=== PATIENT | female | born 1955 | race Caucasian/White ===

== ENCOUNTER 2019-09-10 14:49 | Emergency (ER) | payer MEDICARE ==
--- NOTE | 2019-09-10 15:11 | Emergency Department Record ---
History of Present Illness - General Chief Complaint: Laceration(s) Stated Complaint: LT HAND LAC Time Seen by Provider: 09/10/19 15:09 Source: Patient Mode of Arrival: Ambulatory Limitations: No limitations - History of Present Illness Initial Commments: 64 yo male presents with an injury to his left hand that occurred at 1pm. He fell onto his toolbox causing a laceration from a sharp edge. He was seen at an Urgent Care in [place] and was sent to the ED in [place]. Tetanus was updated. The wound was cleaned prior to arrive. No contamination was noted by the patient. Onset/Timin -: Minutes(s) Place: Home Context: Accidental Associated Symptoms: None - Guille Coma Scale Eye Response: (4) Open spontaneously Motor Response: (6) Obeys commands Verbal Response: (5) Oriented Guille Total: 15 - Related Data Hx Tetanus Toxoid Vaccination: Yes Year of Tetanus Vaccination: t Patient Tetanus UTD (within 5 yrs): Yes Home Medications Medication Instructions Recorded Confirmed Last Taken Gemfibrozil [Lopid] 600 mg PO DAILY 09/10/19 09/10/19 1 Day Ago ~09/09/19 Lisinopril 20 mg PO DAILY 09/10/19 09/10/19 1 Day Ago ~09/09/19 Allergies Allergy/AdvReac Type Severity Reaction Status Date / Time clindamycin AdvReac DIARRHEA Verified 09/10/19 15:08 Travel Screening - Travel/Exposure Within Last 30 Days Have you traveled within the last 30 days?: No - Travel/Exposure Within Last Year Have you traveled outside the [place] in the last year?: No - Additonal Travel Details Have you been exposed to anyone with a communicable illness?: No - Travel Symptoms Symptom Screening: None Review of Systems Constitutional: Denies: Chills, Fever, Weakness Eyes: Denies: Eye discharge ENT: Denies: Congestion, Throat pain Respiratory: Denies: Cough Cardiovascular: Denies: Chest pain, Syncope Endocrine: Denies: Fatigue Gastrointestinal: Denies: Abdominal pain, Diarrhea, Nausea, Vomiting Genitourinary: Denies: Dysuria Musculoskeletal: Denies: Arthralgia, Back pain, Myalgia Neurological: Denies: Headache Psychiatric: Denies: Anxiety Hematological/Lymphatic: Denies: Easy bleeding, Easy bruising Past Medical History - SOCIAL HISTORY Smoking Status: Former smoker Alcohol Use: Occasional Drug Use: Rare, Occasional Drug Use Detail:: Marijuana - RESPIRATORY Hx Respiratory Disorders: No - CARDIOVASCULAR Hx Cardio Disorders: Yes Hx Hypertension: Yes Comment:: hypercholestrol - NEURO Hx Neuro Disorders: No - GI Hx GI Disorders: No - Hx Genitourinary Disorders: No - ENDOCRINE Hx Endocrine Disorders: No Hx Diabetes: No Hx Thyroid Disease: No - MUSCULOSKELETAL Hx Musculoskeletal Disorders: Yes Hx Arthritis: Yes - PSYCH Hx Psych Problems: Yes Hx Depression: Yes - HEMATOLOGY/ONCOLOGY Hx Hematology/Oncology Disorders: No Family Medical History Any Significant Family History?: Yes Physical Exam - General General Appearance: Alert, Oriented x3, Cooperative, No acute distress Limitations: No limitations - Head Head exam: Atraumatic, Normocephalic, Normal inspection - Eye Eye exam: Normal appearance - ENT ENT exam: Normal exam Ear exam: Normal external inspection Nasal Exam: Normal inspection Mouth exam: Normal external inspection - Neck Neck exam: Normal inspection - Respiratory Respiratory exam: negative: Respiratory distress - Cardiovascular Cardiovascular Exam: Regular rate, Normal rhythm, Normal heart sounds Peripheral Pulses: 2+: Radial (L) - Rectal Rectal exam: Deferred - exam: Deferred - Extremities Extremities exam: Full ROM, Normal capillary refill, Tenderness, Other (Laceration). negative: Pedal edema Image of Hand: 1 - tear drop shaped flap like laceration of the palmar surface, no FB, clean, full thumb ROM, no signs of deeper injury or tendon injury, opposes thumb to other fingers without limitation - Neurological Neurological exam: Alert, Oriented X3 - Psychiatric Psychiatric exam: Normal affect, Normal mood - Skin Skin exam: Dry, Normal color, Warm. negative: Intact Type of lesion: Laceration Course Vital Signs 09/10/19 14:51 Temperature 97.8 F Pulse Rate 105 H Respiratory 18 Rate Blood Pressure 157/88 Pulse Ox 99 - Reevaluation(s) Reevaluation #1: 09/10/19 16:23 The XR of the hand was negative I had a very long discussion about the the potential risks and difficulties of healing with this wound given it is a superficial flap like laceration. I explained the flap of tissue has a high chance of not healing requiring potential grafting or healing by secondary intention. I offered referral to hand surgery. The patient understands this risk but requests closure at this time with the knowledge that healing may not be complete or could be complicated. He requests to approach it with a watch and see how it heals. He does agree to the referral and will call hand surgery for follow up but requests the closure. Procedure: 6 cm laceration of the palm of the hand Wound was cleaned and prepped in sterile fashion, no residual FB identified on examination. The wound was copiously irrigated with NS Wound was anesthetized with 4 mL of Bupivicaine The laceration was repaired with Prolene 5-0 sutures in interrupted fashion. 16 sutures placed. Patient tolerated the procedure well without complications. We discussed home care, reasons for immediate return if any concerns, and suture removal in 14 days The patient will either call for a follow up wit hand surgery or return for a wound check in 2-3 days We discussed home care for the wound and reasons to return sooner 09/11/19 07:44 Disposition Disposition: Discharge Clinical Impression: Hand laceration Qualifiers: Encounter type: initial encounter Foreign body presence: without foreign body Laterality: left Qualified Code(s): S61.412A - Laceration without foreign body of left hand, initial encounter Disposition: Home, Self-Care Condition: (1) Good Instructions: Laceration (ED) Additional Instructions: Clean the wound daily and change the dressing Call the phone number for the hand surgeon to arrange follow up Return or be seen if your have concerns with the healing of the wound. Return in the next 3 days for a wound check if you have any concerns. Referrals: MAEGAN MOLINA M.D. [MEDICAL DOCTOR] - Forms: Patient Portal Access Time of Disposition: 16:28 Quality - Quality Measures Quality Measures: N/A - Blood Pressure Screening Does Patient Have Any of the Following: No Blood Pressure Classification: Pre-Hypertensive BP Reading Systolic Measurement: 157 Diastolic Measurement: 88 Screening for High Blood Pressure: < Pre-Hypertensive BP, F/U Documented > [[id number]] Pre-Hypertensive Follow-up Interventions: Referral to alternative/primary care provider.
--- NOTE | 2019-09-10 16:18 | RADIOLOGY REPORT ---
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 The examination shows no evidence of fractu re, dislocation, or soft tissue swelling. No radiopaque foreign body. IMPRESSION: Normal. Dictated by: Michael Lea MD on 09/10/2019 4:15 PM. .
== END 2019-09-10 16:55 | disposition home or self-care (01) ==
LOC: ER 14:49
DX: S61.412A Laceration without foreign body of left hand, initial encounter (principal); I10 Essential (primary) hypertension; Z87.891 Personal history of nicotine dependence; W01.118A Fall on same level from slipping, tripping and stumbling with subsequent striking against other sharp object, initial encounter; Y92.009 Unspecified place in unspecified non-institutional (private) residence as the place of occurrence of the external cause
CPT/HCPCS: 12042; 99284